=== PATIENT | female | born 1970 | race Caucasian/White ===

== ENCOUNTER 2016-10-16 07:01 | Day surgery (SDC) | payer OTHER ==
[~2016-10-16] VITALS: Ht 160 cm; Wt 60.3 kg
[2016-10-16] VITALS (13 sets, daily range): BP systolic 113–130; BP diastolic 56–78; PULSE 72–101; RESP 9–22; O2SAT 97–100
[~2016-10-16 07:01] MED LIST: ACET325T51 PO; CeFAZolin Inj 1 GM in IV Premix 1 EACH IV ONE; IBUP200C PO; LACT1TAB12 PO; MULT-1018 PO; co q 10; red yeast rice; vitamin b; vitamin c; zinc
[2016-10-16] MEDS ORDERED: fentaNYL-PF 50 mCg/mL 2 mL Inj ONE (07:02)
[2016-10-16] MEDS ORDERED: Dexamethasone 4 mg/mL Inj ONE (07:02)
[2016-10-16] MEDS ORDERED: Propofol 10,000 mCg/mL 20 mL Inj ONE (07:02)
[2016-10-16] MEDS ORDERED: Ondansetron 2 mg/mL 2 mL Inj ONE (07:02)
[2016-10-16] MEDS ORDERED: CeFAZolin Inj 2 gm / 50mL D5W IV ONE (07:10)
[2016-10-16] MEDS: Lactated Ringer's 1,000 ML IV SCH ×2 (07:10→08:58)
--- NOTE | 2016-10-16 09:18 | PCM.HPANE ---
Patient Data Surgeon Admitting Provider: Attending Provider:Fernando Reeves DO Primary Care Physician:Kelton Coyne MD Other Provider:Dee Lorenzo Anesthesia Reason for Visit Left Forearm Painful Hardware Ht/WT & BMI Height (Feet): 5 Height (Inches): 3 Weight (Kilograms): 60.3 Body Mass Index 23.00 Allergies Coded Allergies: No Known Allergies (Unverified , 01/10/16) Past Anesthesia History Anesthesia History: Denies:: Abnormal Airway, Anesthesia Reactions, Malignant Hyperthermia Diabetes History Hx Diabetes?: No MRSA MRSA: No Medications Hypertension Medication: No Home Meds Incl Beta Mick: No Reported Medications [red yeast rice] No Conflict CheckUnknown Dose DAILY 10/13/16 [co q 10] No Conflict CheckUnknown Dose DAILY 10/13/16 [zinc] No Conflict CheckUnknown Dose DAILY 10/13/16 [vitamin c] No Conflict CheckUnknown Dose DAILY 10/13/16 [vitamin b] No Conflict CheckUnknown Dose DAILY 10/13/16 Lactobacillus Cmb#7/Fos/Inulin (Probiotic Complex Tablet)1 Each Tablet1 Each PO DAILY 10/13/16 Multivitamin (Multi Vitamin Daily)1 Each Tablet1 Each PO DAILY 30 Days Ref 0 10/13/16 Acetaminophen 325 Mg [id number] Mg PO Q6H PRN For Pain Ref 0 10/13/16 Ibuprofen 200 Mg [id number] Mg PO QID PRN For Pain Ref 0 10/13/16 Discontinued Reported Medications Tramadol 50 Mg [id number] Mg PO Q6H PRN For Pain Ref 0 01/10/16 History History of ENT Problems?: No HEENT History: Denies:: Abnormal Airway Cataracts Dysphagia Glaucoma Hearing Problem Sinus Problem TMJ Denture Type: None Teeth Condition: Within Normal Limits Other HEENT Pertinent History: front three teeth are a bridge Hx of Heart Problems?: No Cardiovascular History: Denies:: AICD Abdominal Aortic Aneurism Atrial Fibrillation Edema Heart Murmur Hypertension Irregular Heartbeat Pacemaker Hx of Respiratory Problem?: No Respiratory History: Denies:: Asthma COPD Emphysema Oxygen Administration Pneumonia Tuberculosis Use of C-PAP Machine Hx Neurologic Problems?: Yes Neurological History: Denies:: CVA Dizziness Headaches Multiple Sclerosis Parkinson's Disease Seizures TIA Hx of GI Problems?: Yes Hx of Problems?: No Genitourinary History: Denies:: Kidney Stones Urinary Tract Infection Female Hx: Denies:: Currently Problems with Breasts? Skin History: Denies:: History Skin Disorders? Pressure Ulcers Hx Musculoskeletal Problems?: Yes Musculoskeletal History: Positive for:: Back Injury (neck pain symptomatic- ) Musculoskeletal Trauma (left forearm retained hardware current admission problems) Denies:: Fibromyalgia Joint Replacement Osteoarthritis Rheumatoid Arthritis Systemic Lupus Hx of Psycho/Social Problems?: No Psycho Social History: Denies:: Anxiety (about this surgery) Hx Depression Hx Surgeries?: Yes (ASIF,HERNIA RPR,ORIF LT ULNAR SHAFT FX) Hx Any Other Health Problems?: Yes Other History: Denies:: Cancer Endocrine Disease Hospitalization Thyroid Disease History Blood Transfusions: Positive for:: Accept Blood Products? Denies:: Blood Transfusions Hx Diabetes: No Hx Alcohol Use: YesAlcoholic Drinks Per Day: holidays, rareHx Substance Use: Yes (marijuana - rarely - every few months, inhalant, edible) Smoking Status: Never Smoker Have You Smoked inLast 12 mo: No Stop/Bang S-Snoring: Do You Snore Loudly: No T-Tired: feel tired, fatigued: No O-Obsered: Observed not breath: No P-Blood Pressure: treated: No B- Body Mass Index > 35 kg/m2: No A- Age over 50: No N- Neck Large Circumference: No G- Gender Male: No SOLITARIO Total Score: 0 SOLITARIO Risk Assessment: Low Risk, <3 Yes Risk Assessment Category Category 1A: Patient has history of documented sleep apnea, and HAS NOT received any narcotic, sedative or anesthesia administration during this stay. Category 1B: Patient has history of documented sleep apnea, and HAS received any narcotic , sedative or anesthesia administration during this stay Category 2: Patient has SUSPECTED Obstructive Sleep Apnea, and HAS received any narcotic , sedative or anesthesia administration during this stay. Category 3: Patient has SUSPECTED Obstructive Sleep Apnea and HAS NOT received narcotic, sedative or anesthesia administration during this stay. Category 4: Outpatient in Procedural Areas with known sleep apnea or who screen positive for High Risk via the STOP/BANG questionnaire. Exam Exam Vital Signs Vital Signs Date Time Temp Pulse Resp B/P Pulse Ox O2 Delivery O2 Flow Rate FiO2 10/16/16 07:22 36.4 73 18 124/68 100 Room Air General Appearance: Alert, Oriented X3, Cooperative HEENT/AIRWAY: MP 1 Lungs: Clear to Auscultation Heart: Exam Unremarkable Meds/Labs/Diagnostics Admission Meds Current Medications Lactated Ringer's (Lr) 1,000 ml @ 10 mls/hr Q24H IV Last administered on 07:10; Start 10/16/16 at 05:00; Stop 10/20/16 at 08:59 Plan Impression Patient chart reviewed, patient interviewed and anesthestic plan with risks, benefits, and alternatives discussed, and informed consent obtained. ASA Physical Status: ASA2 Mod Systemic Disease Anesthetic Plan: GA Bene/Risks/Altern/Consents: Yes HP Complete Prior to Induction: Yes Angel Nelson DO Oct 16, 2016 08:34
[2016-10-16] MEDS ORDERED: Lactated Ringer's 500 ML IV PRN (09:19)
[2016-10-16] MEDS ORDERED: Lactated Ringer's 1,000 ML IV SCH (09:19)
[2016-10-16] MEDS ORDERED: MetoCLOpramide 5 mg/mL 2 mL Inj IVPUSH PRN (09:20)
[2016-10-16] MEDS ORDERED: EPHEDrine Sulfate 50 mg/mL Inj IVPUSH PRN (09:20)
[2016-10-16] MEDS ORDERED: Ondansetron 2 mg/mL 2 mL Inj IVPUSH PRN (09:20)
[2016-10-16] MEDS ORDERED: Atropine 0.4 mg/mL Inj IVPUSH PRN (09:20)
[2016-10-16] MEDS ORDERED: Dexamethasone 4 mg/mL Inj IVPUSH PRN (09:20)
[2016-10-16] MEDS ORDERED: Phenylephrine 10,000 mCg/mL Inj IVPUSH PRN (09:20)
[2016-10-16] MEDS ORDERED: HYDROmorphone 1 mg/mL Inj IVPUSH PRN (09:20)
[2016-10-16] MEDS ORDERED: Lidocaine 1%-Epi 1:100,000 20 mL Inj INJ ONE (09:22)
[2016-10-16] MEDS: fentaNYL-PF 50 mCg/mL 2 mL Inj IVPUSH PRN ×2 (10:20→10:26)
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
[2016-10-16] MEDS: HYDROcodone-APAP 7.5-325 mg Tablet PO PRN ×2 (11:10→15:15)
--- NOTE | 2016-10-16 11:43 | PCM.ANEP1 ---
Post Anesthesia Phase 1 PACU Phase 1 Assessment Vital Signs Vital Signs Date Time Temp Pulse Resp B/P Pulse Ox O2 Delivery O2 Flow Rate FiO2 10/16/16 10:45 72 13 120/66 98 Room Air 10/16/16 10:40 36.6 74 11 113/57 98 Room Air 10/16/16 10:30 79 10 121/67 98 Room Air 10/16/16 10:20 75 9 119/56 98 Simple Mask 8 10/16/16 10:15 90 13 120/63 97 Simple Mask 8 10/16/16 10:10 85 16 116/68 97 Simple Mask 8 10/16/16 10:05 100 14 130/69 97 Simple Mask 8 10/16/16 10:04 36.4 101 13 115/74 99 Simple Mask 8 10/16/16 07:22 36.4 73 18 124/68 100 Room Air Anesthetic Administered: GA Level of Alertness: Awake, talking JACKSON's with Equal Strength: Yes Pain: No Nausea or Vomiting: No Cardiovascular Function and Hy: Yes Oxygen Delivery: Simple Mask Lungs: Clear to Auscultation Complications: No Follow up Care: No Patient Instructions Provided: Yes Angel Nelson DO Oct 16, 2016 11:43
[2016-10-17] MEDS ORDERED: CeFAZolin 2 Gm/50 mL D5W IV Premix IV ONE (06:00)
== END 2016-10-16 23:59 | disposition home or self-care (01) ==
LOC: SAS 07:01
PROVIDERS: ATTEND Orthopaedic Surgery
DX: T84.84XA Pain due to internal orthopedic prosthetic devices, implants and grafts, initial encounter (principal)
CPT/HCPCS: 20680; 76001; J1170; J2405; J3010; J7120